=== PATIENT | female | born 1955 | race Asian ===

== ENCOUNTER 2019-02-24 07:32 | Day surgery (SDC) | payer OTHER ==
[~2019-02-24] VITALS: Ht 152.4 cm; Wt 56.7 kg
[2019-02-24 07:46] VITALS: BP 131/72
[2019-02-24 10:17] VITALS: BP 132/75
== END 2019-02-24 10:20 | disposition home or self-care (01) ==
LOC: GI 07:32 → OR 09:30 → GI 10:20
PROVIDERS: Internal Medicine Gastroenterology
PROC: 0DJD8ZZ Inspection of Lower Intestinal Tract, Via Natural or Artificial Opening Endoscopic (ICD-10-PCS; principal; 2019-02-24 08:30)
DX: Z12.11 Encounter for screening for malignant neoplasm of colon (principal)
CPT/HCPCS: 45378; G0121; J1200; J1610; J2250; J2310; J3010; J3490